=== PATIENT | female | born 1970 ===

== ENCOUNTER 2018-03-31 04:07 | Emergency (ER) | payer MEDICAID ==
--- NOTE | 2018-03-31 05:21 | C.PDOC ---
History Of Present Illness 47 year old female presents to the ER with a complaint of a bilateral frontal headache 17:00 last night. Patient has been fasting and believes it may be due to the fasting. Patient has also been on antibiotics for a throat infection but does not have throat pain at this time. Denies fever, URI symptoms, or dizziness. Chief Complaint (Nursing): Headache History Per: Patient History/Exam Limitations: no limitations Onset/Duration Of Symptoms: Hrs Current Symptoms Are (Timing): Still Present Preceeding Symptoms: None Associated Symptoms: denies: Photophobia, Blurred Vision, Nausea, Vomiting, Extremity Weakness, Other (Fever, dizziness, URI) Recent travel outside of the [place]: No Past Medical History Reviewed: Historical Data, Nursing Documentation, Vital Signs Vital Signs: Last Vital Signs Temp 97.1 F L 03/31/18 04:22 Pulse 95 H 03/31/18 04:22 Resp 14 03/31/18 04:22 BP 129/85 03/31/18 04:22 Pulse Ox 97 03/31/18 05:29 Family History: States: Unknown Family Hx - Social History Hx Alcohol Use: No Hx Substance Use: No Review Of Systems Constitutional: Negative for: Fever ENT: Negative for: Throat Pain Respiratory: Negative for: Cough Gastrointestinal: Negative for: Nausea, Vomiting Neurological: Positive for: Headache. Negative for: Dizziness Physical Exam - Physical Exam Appears: Non-toxic Skin: Normal Color, Warm, Dry Head: Atraumatic, Normacephalic Eye(s): bilateral: Normal Inspection, PERRL, EOMI Oral Mucosa: Moist Throat: Normal, No Erythema, No Exudate Neck: Normal, Supple Lymphatic: No Adenopathy Chest: Symmetrical, No Tenderness Cardiovascular: Rhythm Regular Respiratory: Normal Breath Sounds, No Rales, No Rhonchi, No Wheezing Gastrointestinal/Abdominal: Soft, No Tenderness Extremity: Normal ROM (x4) Neurological/Psych: Oriented x3, Normal Speech, Other (No focal deficits) ED Course And Treatment O2 Sat by Pulse Oximetry: 97 (Room air) Pulse Ox Interpretation: Normal Progress Note: Toradol administered. Patient is resting comfortably in the ER in no acute distress, vitals are stable, will discharge home with instructions to follow up with PMD or return if symptoms worsen. 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 - Scribe Statement The provider has reviewed the documentation as recorded by the Scribkarrie Glass All medical record entries made by the Ruizibkarrie were at my direction and personally dictated by me. I have reviewed the chart and agree that the record accurately reflects my personal performance of the history, physical exam, medical decision making, and the department course for this patient. I have also personally directed, reviewed, and agree with the discharge instructions and disposition.
[2018-03-31 05:38] VITALS: BP 114/79; PULSE 84; RESP 20; TEMP 98.3; O2SAT 97
== END 2018-03-31 05:47 | disposition home or self-care (01) ==
LOC: C.ER 04:07
DX: R51 Headache (principal)
CPT/HCPCS: 96372; 99284; J1885

== ENCOUNTER 2018-05-16 18:36 | Emergency (ER) | payer MEDICAID ==
--- NOTE | 2018-05-16 20:28 | C.PDOC ---
History Of Present Illness 48 y/o female presents to the ER complaining of lower back pain s/p trip and fall on stairs 2 weeks ago. Patient states that pain is concentrated in the lower sacral region and the pain is worse when she sits down and moves around. Denies having weakness, numbness, incontinence, dysuria, and hematuria. Time Seen by Provider: 05/16/18 19:23 Chief Complaint (Nursing): Back Pain History Per: Patient History/Exam Limitations: no limitations Onset/Duration Of Symptoms: Days Current Symptoms Are (Timing): Still Present Severity: Moderate Past Medical History Reviewed: Historical Data, Nursing Documentation, Vital Signs Vital Signs: Last Vital Signs Temp 98.2 F 05/16/18 21:37 Pulse 74 05/16/18 21:37 Resp 18 05/16/18 21:37 BP 110/75 05/16/18 21:37 Pulse Ox 100 05/16/18 21:46 - Medical History PMH: No Chronic Diseases Surgical History: No Surg Hx Family History: States: No Known Family Hx - Social History Hx Alcohol Use: No Hx Substance Use: No - Immunization History Hx Tetanus Toxoid Vaccination: No Hx Influenza Vaccination: No Hx Pneumococcal Vaccination: No Review Of Systems Except As Marked, All Systems Reviewed And Found Negative. Genitourinary: Negative for: Dysuria, Incontinence, Hematuria Musculoskeletal: Positive for: Back Pain (lower back pain) Neurological: Negative for: Weakness, Numbness Physical Exam - Physical Exam Appears: Non-toxic, No Acute Distress Skin: Normal Color, Warm, Dry Head: Atraumatic, Normacephalic Eye(s): bilateral: Normal Inspection Nose: Normal Oral Mucosa: Moist Neck: Supple Gastrointestinal/Abdominal: Normal Exam Back: Normal Inspection, No CVA Tenderness, No Vertebral Tenderness (lumbar), No Paraspinal Tenderness, Other (mild tenderness to coccyx region, no gluteal ecchymosis, no erythema) Extremity: Normal ROM (bilateral lower extremities) Extremity: Bilateral: Normal Color And Temperature, Normal ROM Neurological/Psych: Oriented x3, Normal Speech, Normal Motor, Normal Sensation Gait: Steady ED Course And Treatment O2 Sat by Pulse Oximetry: 100 (RA) Pulse Ox Interpretation: Normal - Other Rad coccyx/ sacrum X-Ray: Interpreted by Me, Viewed By Me Interpretation: No acute pathology Progress Note: X-Ray- Coccyx ordered. Patient treated with Toradol IM. 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 - Scribe Statement The provider has reviewed the documentation as recorded by the Becky Barger Provider Attestation All medical record entries made by the Ruizibkarrie were at my direction and personally dictated by me. I have reviewed the chart and agree that the record accurately reflects my personal performance of the history, physical exam, medical decision making, and the department course for this patient. I have also personally directed, reviewed, and agree with the discharge instructions and disposition.
[2018-05-16 21:38] VITALS: BP 110/75; PULSE 74; RESP 18; TEMP 98.2
[2018-05-16 21:46] VITALS: O2SAT 100
--- NOTE | 2018-05-17 11:55 | RAD ---
Date of service: 05/16/2018 PROCEDURE: Radiographs of the Sacrum and Coccyx HISTORY: pain, fall on stairs COMPARISON: None available. TECHNIQUE: Frontal and lateral views of the sacrum and coccyx FINDINGS: BONES: Sacrum and coccyx unremarkable. No fracture or focal lesion. SACROILIAC JOINTS: Unremarkable. OTHER FINDINGS: None. IMPRESSION: Unremarkable radiographs of the sacrum and coccyx.
== END 2018-05-16 21:38 | disposition home or self-care (01) ==
LOC: C.ER 18:36
DX: S39.92XA Unspecified injury of lower back, initial encounter (principal); W10.9XXA Fall (on) (from) unspecified stairs and steps, initial encounter; Y92.9 Unspecified place or not applicable
CPT/HCPCS: 72220; 96372; 99283; J1885